=== PATIENT | female | born 1990 | race Caucasian/White ===

== ENCOUNTER 2021-12-03 11:30 | Emergency (ER) | payer OTHER ==
[~2021-12-03] VITALS: Ht 160 cm; Wt 46.3 kg
== END 2021-12-03 15:39 | disposition home or self-care (01) ==
LOC: ER 11:30
DX: R10.9 Unspecified abdominal pain (principal); R11.2 Nausea with vomiting, unspecified; E16.2 Hypoglycemia, unspecified

== ENCOUNTER 2021-12-06 18:48 | Emergency (ER) | payer OTHER ==
[~2021-12-06] VITALS: Ht 160 cm; Wt 46.3 kg
== END 2021-12-06 22:19 | disposition home or self-care (01) ==
LOC: ER 18:48
DX: S46.811A Strain of other muscles, fascia and tendons at shoulder and upper arm level, right arm, initial encounter (principal); X58.XXXA Exposure to other specified factors, initial encounter; Y93.89 Activity, other specified; Y92.89 Other specified places as the place of occurrence of the external cause; M54.9 Dorsalgia, unspecified

== ENCOUNTER 2022-03-04 13:12 | Emergency (ER) | payer OTHER ==
[~2022-03-04] VITALS: Ht 160 cm; Wt 47.6 kg
== END 2022-03-04 18:35 | disposition home or self-care (01) ==
LOC: ER 13:12
DX: B34.9 Viral infection, unspecified (principal); Z20.822 Contact with and (suspected) exposure to COVID-19

== ENCOUNTER 2022-07-21 13:42 | Emergency (ER) | payer OTHER ==
[~2022-07-21] VITALS: Ht 160 cm; Wt 45.8 kg
== END 2022-07-21 20:12 | disposition left against medical advice (07) ==
LOC: ER 13:42
DX: Z53.21 Procedure and treatment not carried out due to patient leaving prior to being seen by health care provider (principal)

== ENCOUNTER 2023-03-30 11:53 | Emergency (ER) | payer OTHER ==
[~2023-03-30] VITALS: Ht 160 cm; Wt 47.2 kg
[2023-03-30 15:42] LABS: HEMATOCRIT 39.8 % (36.0-45.00); HEMOGLOBIN 13.3 g/dL (12.0-15.00); MEAN CELL VOLUME 83.4 fL (80.00-100.00); MEAN CORPUSCULAR HEMOGLOBIN 27.8 pg (27.00-32.0); MEAN CORPUSCULAR HGB CONC 33.3 g/dl (32.0-36.0); PLATELET COUNT 170 K/uL (150-450); RED BLOOD COUNT 4.78 M/uL (4.00-6.00); RED CELL DISTRIBUTION WIDTH 13.5 % (11.5-14.5)
[2023-03-30] MEDS ORDERED: KETOROLAC TROMETHAMINE 30 MG VIAL IM STA (17:36)
[2023-03-30] MEDS ORDERED: CEFTRIAXONE SODIUM 1,000 MG VIAL IM STA (17:37)
== END 2023-03-30 18:04 | disposition home or self-care (01) ==
LOC: ER 11:54
PROVIDERS: General Practice
DX: B34.9 Viral infection, unspecified (principal); Z20.822 Contact with and (suspected) exposure to COVID-19